=== PATIENT | male | born 2000 | race Caucasian/White ===

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

== ENCOUNTER → 2022-06-02 | Outpatient (CLI) | payer BC | LOC: M LABSMTC 07:45 | DX: Z01.812 Encounter for preprocedural laboratory examination (principal) ==

== ENCOUNTER → 2023-03-19 | Outpatient (REF) | payer OTHER | LOC: M SFHCCAPE 16:53 | PROVIDERS: ATTEND Physician Assistant Medical | DX: J02.0 Streptococcal pharyngitis (principal) ==